=== PATIENT | female | born 1985 | race Caucasian/White ===

== ENCOUNTER 2018-03-10 08:04 | Outpatient (CLI) | payer BC ==
--- NOTE | 2018-03-10 09:41 | MRI ---
MRI LEFT FOOT: Date: 03-10-18 Provided Clinical History: Left foot pain. FINDINGS: Regional marrow signal appears unremarkable with the exception of minimal signal alteration at the pl solange/lateral aspect of the middle cuneiform and adjacent dorsal base of the fourth metatarsal. Align ment appears anatomic. Joint spaces appear preserved. No regional joint effusion is evident. The dors al extensor and plantar flexor tendons demonstrate an intact MR appearance. The lisfranc ligamentous complex appears intact. There is preservation of the normal fat signal intensity within the sinus tar si. The plantar aponeurosis appears normal. The courses of the region major vascular structures appea r unremarkable. IMPRESSION: Minimal signal alteration about the fourth TMT joint, which could reflect contusion. Otherwise, unrem arkable MRI of the left foot. POS: C
== END 2018-03-10 08:05 | disposition home or self-care (01) ==
LOC: BICMRI 08:04
PROVIDERS: ATTEND Orthopaedic Surgery
DX: M79.672 Pain in left foot (principal)

== ENCOUNTER 2019-10-18 02:47 | Emergency (ER) | payer BC ==
[2019-10-18] MEDS ORDERED: Atropine Sulfate 1 mg/10 ml Syringe ONE (03:00)
[2019-10-18] MEDS ORDERED: EPINEPHrine 1 MG/10 ML Abboject SYRINGE ONE (03:00)
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
== END 2019-10-18 02:57 | disposition expired ==
LOC: MERGE 02:47 → ERS 02:47 → EDBD 02:47 → ERS 02:57
DX: T59.811A Toxic effect of smoke, accidental (unintentional), initial encounter (principal); J68.8 Other respiratory conditions due to chemicals, gases, fumes and vapors; I46.9 Cardiac arrest, cause unspecified; T25.221A Burn of second degree of right foot, initial encounter; T24.212A Burn of second degree of left thigh, initial encounter; T24.211A Burn of second degree of right thigh, initial encounter; T23.201A Burn of second degree of right hand, unspecified site, initial encounter; T22.211A Burn of second degree of right forearm, initial encounter; T23.202A Burn of second degree of left hand, unspecified site, initial encounter; T31.50 Burns involving 50-59% of body surface with 0% to 9% third degree burns; X08.8XXA Exposure to other specified smoke, fire and flames, initial encounter
CPT/HCPCS: 96374; 96375; G0390; J0171; J0461